=== PATIENT | male | born 1985 | race Caucasian/White ===

== ENCOUNTER 2020-06-03 00:26 | Emergency (ER) | payer OTHER ==
[~2020-06-03] VITALS: Ht 172.7 cm; Wt 70.3 kg
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
--- NOTE | 2020-06-03 00:49 | NUR ---
XRAY AT BEDSIDE
--- NOTE | 2020-06-03 01:32 | NUR ---
Note bisi in ED - 06/03/20 at 0204 by PRADEEP pt is medically stable for d/c. Patient discharged w/ [employer] in custody in stable condition. Written and verbal after care instructions given. Patient verbalizes understanding of instruction.
[2020-06-03 01:33] VITALS: BP 129/84
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
--- NOTE | 2020-06-03 02:06 | NUR ---
pt is medically stable for d/c. Patient discharged w/ [employer] in custody in stable condition. Written and verbal after care instructions given. Patient verbalizes understanding of instruction.
--- NOTE | 2020-06-03 05:23 | NUR ---
Mingo mathews in ED - 06/03/20 at 0541 by LIZBET Patient discharged to home in stable condition. Written and verbal after care instructions given. Patient verbalizes understanding of instruction. Pt in custody.
== END 2020-06-03 02:06 ==
LOC: ER 00:29
DX: S62.317A Displaced fracture of base of fifth metacarpal bone, left hand, initial encounter for closed fracture (principal); V49.49XA Driver injured in collision with other motor vehicles in traffic accident, initial encounter; Y93.89 Activity, other specified; Y92.413 State road as the place of occurrence of the external cause; Y99.8 Other external cause status
CPT/HCPCS: 73090-TC; 73130-TC